=== PATIENT | female | born 1935 | race Caucasian/White ===

== ENCOUNTER 2021-06-14 14:16 | Inpatient (IN) | payer MEDICARE, BC ==
[~2021-06-14] VITALS: Ht 167.6 cm; Wt 62.7 kg
[2021-06-14 15:09] LABS: Source, Urine Clean Catch
[2021-06-14 15:11] LABS: Bilirubin, Urine Neg (Neg); Blood, Urine Neg (Neg); Glucose Qualitative, Urine Neg (Neg); Ketones, Urine Neg (Neg); Leukocyte Esterase, Urine Neg (Neg); Nitrite, Urine Neg (Neg); Protein, Urine Neg (Neg); Specific Gravity, Urine 1.015 (1.003-1.022); Urobilinogen, Urine NORM (Normal)
[2021-06-14 15:12] LABS: BASOPHILS PERCENT AUTO 0 % (0-2); EOSINOPHILS ABSOLUTE AUTO 0.14 K/mm3 (0.00-0.68); EOSINOPHILS PERCENT AUTO 2 % (0-6); Hematocrit 34.3 % (33.0-51.0); Hemoglobin 10.4 g/dL (11.5-16.0); IMMATURE GRAN ABSOLUTE AUTO 0.03 K/mm3 (0.00-0.10); IMMATURE GRAN PERCENT AUTO 0 % (0-1); LYMPHOCYTES ABSOLUTE AUTO 1.09 K/mm3 (0.84-5.20); LYMPHOCYTES PERCENT AUTO 16 % (21-46); MONOCYTES ABSOLUTE AUTO 0.81 K/mm3 (0.16-1.47); MONOCYTES PERCENT AUTO 12 % (4-13); Mean Corpuscular HGB Conc 30.3 g/dL (31.5-36.5); Mean Corpuscular Volume 86 fL (80-100); Mean Platelet Volume 9.2 fL (9.1-12.4); NEUTROPHILS ABSOLUTE AUTO 4.78 K/mm3 (1.96-9.15); NEUTROPHILS PERCENT AUTO 70 % (41-73); Platelet Count 363 K/mm3 (150-400); RDW Coefficient Variation 14.8 % (11.7-14.2); RDW Standard Deviation 46.6 fL (35.1-46.3); White Blood Cell Count 6.85 K/mm3 (4.00-11.30)
[2021-06-14 15:17] LABS: Appearance, Urine Clear (Clear); Color, Urine Pale Yellow (P-Yellow)
[2021-06-14 15:32] LABS: Alanine Aminotransfer (ALT/SGP 16 U/L (12-78); Albumin/Globulin Ratio 0.7 (0.8-1.8); Alk Phos 101 U/L (50-136); Anion Gap 8 mmol/L (6-16); Aspartate Aminotrans (AST/SGOT 16 U/L (12-37); Bilirubin, Total 0.4 mg/dL (0.1-1.0); Blood Urea Nitrogen 17 mg/dL (8-24); Bun/Creatinine Ratio 20.7 (12.0-20.0); CO2, Blood 28 mmol/L (21-32); Calcium, Blood 8.9 mg/dL (8.5-10.1); Chloride, Blood 103 mmol/L (98-108); Creatinine, Blood 0.82 mg/dL (0.40-1.00); Globulin, Blood 4.1 g/dL (2.2-4.0); Glomerular Filtration Rate >60 (60-); Glucose, Blood 123 mg/dL (70-99); Potassium, Blood 4.3 mmol/L (3.5-5.5); Sodium, Blood 139 mmol/L (136-145); Total Protein, Blood 7.1 g/dL (6.4-8.2)
[2021-06-14] MEDS ORDERED: ELIQUIS5 M2 PO (16:06)
[2021-06-14] MEDS ORDERED: AMLO5 PO (16:06)
[2021-06-14] MEDS ORDERED: LOSA25 PO (16:06)
[2021-06-14] MEDS ORDERED: FURO80 PO (16:07)
[2021-06-14] MEDS ORDERED: POTA10T PO (16:07)
[2021-06-14] MEDS ORDERED: ALLO100 PO (20:28)
[2021-06-14] MEDS ORDERED: ALBU2.5V5 (20:28)
[2021-06-14] MEDS ORDERED: ATOR40TA PO (20:29)
[2021-06-14] MEDS ORDERED: DIGOX125 MC1 PO (20:30)
[2021-06-14] MEDS ORDERED: MELA3 PO (20:31)
[2021-06-14] MEDS ORDERED: OXYC5 PO (20:32)
[2021-06-14] MEDS ORDERED: OMEP20ER PO (20:32)
[2021-06-14] MEDS ORDERED: SERT25 PO (20:33)
[2021-06-14] MEDS ORDERED: CLOP75 PO (20:33)
[2021-06-14 20:56] LABS: BODY FLUID RBC 0.801 M/mm3 (0-0); RBC Count, Synovial Fluid 801000 /mm3 (0-0); WBC Count, Synovial Fluid 3321 /mm3 (0-180)
[2021-06-14 21:00] LABS: Color, Synovial Fluid Red (None-P Yel)
[2021-06-14 21:01] LABS: Appearance, Synovial Fluid Bloody (Clear)
[2021-06-14 21:16] LABS: Influenza A, PCR NEGATIVE (NEGATIVE); Influenza B, PCR NEGATIVE (NEGATIVE); Resp Syncytial Virus, PCR NEGATIVE (NEGATIVE); SARS-Cov-2 (COVID-19) PCR, MMC NEGATIVE (NEGATIVE)
[2021-06-14 21:22] LABS: Lymphs, Synovial Fluid 7 % (0-15); Monocytes/Macrophages, Synovia 15 % (0-65); Neutrophils, Synovial Fluid 78 % (0-24)
--- NOTE | 2021-06-15 02:42 | NUR ---
ADMITTED THIS PT. FROM ED, AOX4. AMBULATES TO BR USING A CANE BASELINE AT HOME LIVING INDEPENDENTLY PER PT. 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 NO DRAINAGE NOTED. SMALL FREQUENT VOIDING OF CLEAR TANJA URINE, USES BSC AT TIMES. NO ACUTE CHANGES NOTED. NPO STARTED AT MIDNIGHT. ON TELE, AFIB AT 48 - 60S, ASYMPTOMATIC, DENIES CP, PT. STATED SHE HAS AFIB FOR 3 YRS NOW & SHE SAID SHE DOES NOT FEEL ANY CHEST DISCOMFORT. WILL REPORT TO MADELAINE RN FOR ROUNDING MD TO BE NOTIFIED. WILL CONTINUE TO MONITOR.
[2021-06-15 05:08] LABS: BASOPHILS PERCENT AUTO 0 % (0-2); EOSINOPHILS ABSOLUTE AUTO 0.16 K/mm3 (0.00-0.68); EOSINOPHILS PERCENT AUTO 3 % (0-6); Hematocrit 30.5 % (33.0-51.0); Hemoglobin 9.1 g/dL (11.5-16.0); IMMATURE GRAN ABSOLUTE AUTO 0.02 K/mm3 (0.00-0.10); IMMATURE GRAN PERCENT AUTO 0 % (0-1); LYMPHOCYTES ABSOLUTE AUTO 1.25 K/mm3 (0.84-5.20); LYMPHOCYTES PERCENT AUTO 24 % (21-46); MONOCYTES PERCENT AUTO 12 % (4-13); Mean Corpuscular HGB 25.8 pg (26.0-34.0); Mean Corpuscular HGB Conc 29.8 g/dL (31.5-36.5); Mean Corpuscular Volume 86 fL (80-100); NEUTROPHILS ABSOLUTE AUTO 3.16 K/mm3 (1.96-9.15); NEUTROPHILS PERCENT AUTO 61 % (41-73); Platelet Count 302 K/mm3 (150-400); RDW Coefficient Variation 14.8 % (11.7-14.2); Red Blood Cell Count 3.53 M/mm3 (3.80-5.20); White Blood Cell Count 5.19 K/mm3 (4.00-11.30)
[2021-06-15 06:11] LABS: Alanine Aminotransfer (ALT/SGP 11 U/L (12-78); Albumin, Blood 2.7 g/dL (3.4-5.0); Albumin/Globulin Ratio 0.8 (0.8-1.8); Alk Phos 82 U/L (50-136); Anion Gap 8 mmol/L (6-16); Aspartate Aminotrans (AST/SGOT 14 U/L (12-37); Bilirubin, Total 0.3 mg/dL (0.1-1.0); Blood Urea Nitrogen 15 mg/dL (8-24); Bun/Creatinine Ratio 22.3 (12.0-20.0); CO2, Blood 26 mmol/L (21-32); Calcium, Blood 8.6 mg/dL (8.5-10.1); Chloride, Blood 106 mmol/L (98-108); Creatinine, Blood 0.67 mg/dL (0.40-1.00); Globulin, Blood 3.6 g/dL (2.2-4.0); Glomerular Filtration Rate >60 (60-); Glucose, Blood 97 mg/dL (70-99); Potassium, Blood 3.8 mmol/L (3.5-5.5); Sodium, Blood 140 mmol/L (136-145); Total Protein, Blood 6.3 g/dL (6.4-8.2)
--- NOTE | 2021-06-15 17:29 | NUR ---
SHIFT SUMMARY PT HAS DONE VERY WELL TODAY. HAS DECLINED PAIN MEDS, EATING, DRINKING, VOIDING WELL. MOVING AROUND EASILY. NO DRAINAGE FROM L HIP SITE; SWELLING/REDNESS UNCHANGED.
--- NOTE | 2021-06-16 04:27 | NUR ---
TAIL BOARD MAN SUMMARY NO ACUTE CHANGES THIS SHIFT. PT AAOX4 AND PLEASANT. INDEPENDENT TO BSC. CONTINUES IV ABX. MEDICATED FOR PAIN X1 AT BEDTIME, PT HAS SLEPT WELL THROUGH THE NIGHT. SOME SWELLING REDNESS STILL NOTED TO L HIP, LOOKS IMPROVED PER PT. VSS, WILL CONTINUE TO MONITOR.
[2021-06-16 08:27] LABS: Hematocrit 31.8 % (33.0-51.0); Hemoglobin 9.4 g/dL (11.5-16.0)
--- NOTE | 2021-06-16 14:59 | NUR ---
1400 discharge instructions reviewed with patient and her daughter and questions answered.pt reports pain is adequately controlled with po meds. pt reports her only paiin at this time is in bilat knees due to arthritis.pt up in room wih use of cane. ever po food and fluids, voiding clear yellow urine.
--- NOTE | 2021-06-16 15:03 | NUR ---
1425 discharged to home with daughter
== END 2021-06-16 14:37 | disposition home or self-care (01) | DRG 556 ==
LOC: ER 14:16 → SURS 21:50
PROVIDERS: Emergency Medicine; Family Medicine; Internal Medicine; Physician Assistant; ADMIT Internal Medicine
PROC: 0S9B3ZX Drainage of Left Hip Joint, Percutaneous Approach, Diagnostic (ICD-10-PCS; principal; 2021-06-14)
DX: M79.81 Nontraumatic hematoma of soft tissue (principal); I48.20 Chronic atrial fibrillation, unspecified; D62 Acute posthemorrhagic anemia; Z20.822 Contact with and (suspected) exposure to COVID-19; I11.0 Hypertensive heart disease with heart failure; I50.9 Heart failure, unspecified; K21.9 Gastro-esophageal reflux disease without esophagitis; F32.A Depression, unspecified; J44.9 Chronic obstructive pulmonary disease, unspecified; Z28.21 Immunization not carried out because of patient refusal; M10.9 Gout, unspecified; I25.10 Atherosclerotic heart disease of native coronary artery without angina pectoris; Z96.653 Presence of artificial knee joint, bilateral; Z96.642 Presence of left artificial hip joint; Z79.01 Long term (current) use of anticoagulants; Z88.2 Allergy status to sulfonamides; Z88.1 Allergy status to other antibiotic agents; Z79.02 Long term (current) use of antithrombotics/antiplatelets; Z79.899 Other long term (current) drug therapy; Z95.5 Presence of coronary angioplasty implant and graft; Z90.710 Acquired absence of both cervix and uterus; Z98.890 Other specified postprocedural states
CPT/HCPCS: 0241U; 10160; 36415; 73502; 73701; 80053; 81003; 83605; 83690; 85014; 85018; 85025; 85651; 86140; 87040; 87070; 87205; 89051; 96374; 99285-25; A9270; J0696; J7030; Q9967

== ENCOUNTER 2021-06-22 14:26 | Inpatient (IN) | payer MEDICARE, BC ==
[~2021-06-22] VITALS: Ht 167.6 cm; Wt 62.5 kg
[~2021-06-22 14:26] MED LIST: ALBU2.5V5; ALLO100 PO; AMLO5 PO; ATOR40TA PO; CLOP75 PO; DIGOX125 MC1 PO; ELIQUIS5 M2 PO; FURO80 PO; LOSA25 PO; MELA3 PO; OMEP20ER PO; OXYC5 PO; POTA10T PO; SERT25 PO
[2021-06-22 16:56] LABS: BASOPHILS PERCENT AUTO 0 % (0-2); EOSINOPHILS ABSOLUTE AUTO 0.07 K/mm3 (0.00-0.68); EOSINOPHILS PERCENT AUTO 1 % (0-6); Hematocrit 32.1 % (33.0-51.0); Hemoglobin 9.7 g/dL (11.5-16.0); IMMATURE GRAN ABSOLUTE AUTO 0.04 K/mm3 (0.00-0.10); IMMATURE GRAN PERCENT AUTO 1 % (0-1); LYMPHOCYTES ABSOLUTE AUTO 1.14 K/mm3 (0.84-5.20); LYMPHOCYTES PERCENT AUTO 13 % (21-46); MONOCYTES ABSOLUTE AUTO 0.81 K/mm3 (0.16-1.47); MONOCYTES PERCENT AUTO 9 % (4-13); Mean Corpuscular HGB 25.5 pg (26.0-34.0); Mean Corpuscular HGB Conc 30.2 g/dL (31.5-36.5); Mean Corpuscular Volume 84 fL (80-100); Mean Platelet Volume 9.4 fL (9.1-12.4); NEUTROPHILS ABSOLUTE AUTO 6.61 K/mm3 (1.96-9.15); NEUTROPHILS PERCENT AUTO 76 % (41-73); Platelet Count 331 K/mm3 (150-400); RDW Coefficient Variation 14.6 % (11.7-14.2); Red Blood Cell Count 3.81 M/mm3 (3.80-5.20); White Blood Cell Count 8.67 K/mm3 (4.00-11.30)
[2021-06-22 17:11] LABS: Alanine Aminotransfer (ALT/SGP 18 U/L (12-78); Albumin, Blood 3.1 g/dL (3.4-5.0); Albumin/Globulin Ratio 0.8 (0.8-1.8); Alk Phos 83 U/L (50-136); Anion Gap 4 mmol/L (6-16); Aspartate Aminotrans (AST/SGOT 23 U/L (12-37); Bilirubin, Total 0.6 mg/dL (0.1-1.0); Blood Urea Nitrogen 14 mg/dL (8-24); Bun/Creatinine Ratio 21.1 (12.0-20.0); CO2, Blood 27 mmol/L (21-32); Calcium, Blood 8.7 mg/dL (8.5-10.1); Chloride, Blood 104 mmol/L (98-108); Creatinine, Blood 0.66 mg/dL (0.40-1.00); Globulin, Blood 3.7 g/dL (2.2-4.0); Glomerular Filtration Rate >60 (60-); Glucose, Blood 132 mg/dL (70-99); Potassium, Blood 3.9 mmol/L (3.5-5.5); Sodium, Blood 135 mmol/L (136-145); Total Protein, Blood 6.8 g/dL (6.4-8.2)
[2021-06-23 03:19] LABS: Influenza A, PCR NEGATIVE (NEGATIVE); Influenza B, PCR NEGATIVE (NEGATIVE); Resp Syncytial Virus, PCR NEGATIVE (NEGATIVE); SARS-Cov-2 (COVID-19) PCR, MMC NEGATIVE (NEGATIVE)
[2021-06-23 04:00] LABS: Hematocrit 27.8 % (33.0-51.0); Hemoglobin 8.4 g/dL (11.5-16.0); Mean Corpuscular HGB 25.7 pg (26.0-34.0); Mean Corpuscular HGB Conc 30.2 g/dL (31.5-36.5); Mean Corpuscular Volume 85 fL (80-100); Mean Platelet Volume 8.9 fL (9.1-12.4); Platelet Count 262 K/mm3 (150-400); RDW Coefficient Variation 14.6 % (11.7-14.2); RDW Standard Deviation 45.6 fL (35.1-46.3); Red Blood Cell Count 3.27 M/mm3 (3.80-5.20); White Blood Cell Count 8.18 K/mm3 (4.00-11.30)
[2021-06-23 04:24] LABS: Anion Gap 6 mmol/L (6-16); Blood Urea Nitrogen 17 mg/dL (8-24); Bun/Creatinine Ratio 20.8 (12.0-20.0); CO2, Blood 27 mmol/L (21-32); Calcium, Blood 8.4 mg/dL (8.5-10.1); Chloride, Blood 105 mmol/L (98-108); Creatinine, Blood 0.82 mg/dL (0.40-1.00); Glomerular Filtration Rate >60 (60-); Glucose, Blood 153 mg/dL (70-99); Sodium, Blood 138 mmol/L (136-145)
--- NOTE | 2021-06-23 06:07 | NUR ---
[employer] SALES REPRESENTATIVE SUMMARY NEW ADMIT AT START OF SHIFT. PT ADMITTED FOR DISLOCATED L HIP, HAD ORIGINAL HIP SURGERY THIS APRIL. NOTABLE SWELLING TO LEFT HIP WITH SMALL BRUISE FROM FALL. PT HAS BEEN MEDICATED WITH OXYCODONE AND 25 MCG OF IV FENTANYL THROUGHOUT NIGHT WITH SOME RELIEF. PT HAS BEEN MOVING AROUND ALOT IN BED WHICH MAY BE IRRITATING THE HIP MORE. PT HAD TO HAVE 2L O2 PLACED AT ONE POINT BUT SEEMED TO BE MORE POSITIONAL VS RELATED TO PAIN MEDS SATS INCREASED WHEN PT WAS MORE UPRIGHT IN BED. NOW ON RA. AFIB IN THE 80-90'S ON TELEMETRY. SPOKE TO DR LANDA WITH UPDATE ON PT. PER DR LANDA, DR LEBLANC WILL BE IN TO SEE PT LATER TODAY. WILL CONTINUE TO MONITOR.
--- NOTE | 2021-06-23 09:32 | NUR ---
FAXED REQUEST FOR OP REPORT TO JULIUS JONES FAX NUMBER: [phone]
--- NOTE | 2021-06-23 11:49 | NUR ---
FOLLOWED UP W/KAREN REGARDING REQUEST FOR OPERATIVE REPORT VERIFIED THEY HAVE REC'D REQUEST. PROCESS IN ORDER OF REQUEST RECEIPT, MULTIPLE REQUESTS AHEAD OF THIS ONE. ANTICIPATE SHOULD BE PROCESSED AT SOME POINT TODAY.
--- NOTE | 2021-06-23 12:15 | NUR ---
DRESSING CHANGED ON IV L FA 20 G. FLUSHED WITH 10NS, PATENT, NON TENDER.
--- NOTE | 2021-06-23 13:24 | NUR ---
06/23/21 1324 Geovanna Montenegro PATIENT ARRIVED TO OR WITH VALENCIA CATHETER IN PLACE DRAINING YELLOW URINE.
--- NOTE | 2021-06-23 19:16 | NUR ---
SHIFT SUMMARY PT S/P L HIP REVISION. PT HAD A LONG SURGERY AND IS CURRENTLY CONFUSED. DAUGHTER WENT HOME FROM THE NIGHT. SIGNATURE NEEDED FROM PATIENT IN ORDER TO RELEASE PT CHART INFORMATION FROM JULIUS JONES.
--- NOTE | 2021-06-23 20:04 | NUR ---
PT IS VERY CONFUSED AND PARANOID AFTER COMING BACK FROM SURGERY. PT REMOVED TELE MONITORING AND WILL NOT ALLOW STAFF TO REPLACE TELE. PT ALSO REMOVED SPO2 MONITORING AND WILL NOT LET IT BE REPLACED. PT STATES "YOU GUYS ARE TRYING TO TRACK MY INFORMATION WITH THESE THINGS". NOTIFIED [employer] THAT PT REFUSING TELE AT THIS TIME.
--- NOTE | 2021-06-23 21:18 | NUR ---
TRIED CHECKING V/S FOR POST OP AT 2014 & 2114, PT. CONFUSED, PULLED HER ARM AWAY FOR B/P CUFF & SAID ' NO", PRIMARY RN NOTIFIED.
--- NOTE | 2021-06-23 21:24 | NUR ---
PT MENTATION A BIT IMPROVED AT THIS POINT. IS MORE CALM AND ALLOWED THIS RN TO REPLACE TELE MONITORING AND SPO2 MONITOR. PT SITTING IN BED AT THIS TIME EATING JELLO, STATES PAIN LEVEL IS A 0. WILL CONTINUE TO MONITOR.
--- NOTE | 2021-06-23 21:57 | NUR ---
PT BACK TO BEING PARANOID AND CONFUSED. ATTEMPTED TO START PT'S SCHEDULED IV ABX AND PT REFUSING AND YELLING AT STAFF. CONTINUES TO REFUSE TO HAVE VITAL SIGNS TAKEN AT THIS TIME. WILL CONTINUE TO PERFORM CARE PT ALLOWS.
--- NOTE | 2021-06-23 23:27 | NUR ---
CATHETER CARE DONE WITH READYCLEANSE WIPES, PT. TOLERATED WELL.
--- NOTE | 2021-06-23 23:31 | NUR ---
OFFERED TO REPOSITION & BOOST PT. UP IN BED, PT STRONGLY REFUSED, STATING THAT SHE IS FINE WITH HER POSITION.
[2021-06-24 03:53] LABS: BASOPHILS ABSOLUTE AUTO 0.01 K/mm3 (0.00-0.23); BASOPHILS PERCENT AUTO 0 % (0-2); EOSINOPHILS PERCENT AUTO 0 % (0-6); Hematocrit 20.3 % (33.0-51.0); IMMATURE GRAN PERCENT AUTO 1 % (0-1); LYMPHOCYTES ABSOLUTE AUTO 0.78 K/mm3 (0.84-5.20); LYMPHOCYTES PERCENT AUTO 5 % (21-46); MONOCYTES ABSOLUTE AUTO 1.69 K/mm3 (0.16-1.47); MONOCYTES PERCENT AUTO 11 % (4-13); Mean Corpuscular HGB 25.5 pg (26.0-34.0); Mean Corpuscular HGB Conc 29.6 g/dL (31.5-36.5); Mean Corpuscular Volume 86 fL (80-100); Mean Platelet Volume 9.6 fL (9.1-12.4); NEUTROPHILS ABSOLUTE AUTO 12.43 K/mm3 (1.96-9.15); NEUTROPHILS PERCENT AUTO 83 % (41-73); Platelet Count 290 K/mm3 (150-400); RDW Coefficient Variation 14.7 % (11.7-14.2); RDW Standard Deviation 46.2 fL (35.1-46.3); Red Blood Cell Count 2.35 M/mm3 (3.80-5.20); White Blood Cell Count 15.01 K/mm3 (4.00-11.30)
[2021-06-24 04:17] LABS: Anion Gap 9 mmol/L (6-16); Blood Urea Nitrogen 24 mg/dL (8-24); Bun/Creatinine Ratio 28.3 (12.0-20.0); CO2, Blood 22 mmol/L (21-32); Calcium, Blood 7.6 mg/dL (8.5-10.1); Chloride, Blood 104 mmol/L (98-108); Creatinine, Blood 0.85 mg/dL (0.40-1.00); Glomerular Filtration Rate >60 (60-); Glucose, Blood 168 mg/dL (70-99); Potassium, Blood 4.2 mmol/L (3.5-5.5); Sodium, Blood 135 mmol/L (136-145)
--- NOTE | 2021-06-24 04:57 | NUR ---
FINANCIAL ADMINISTRATIVE ASSISTANT SUMMARY PT CAME BACK FROM SURGERY NOT LONG BEFORE START OF SHIFT. PT HAS BEEN QUITE CONFUSED AND PARANOID SINCE COMING TO THE FLOOR, SHE WAS AAOX4 PREVIOUS NIGHT. PT OFTEN AGITATED WITH STAFF AND REFUSING CARE AT TIMES BUT DOES HAVE SHORT PERIODS WHERE SHE WILL BE CALM AND COOPERATIVE. AT ONE POINT PT BEGAN REMOVING TELEMETRY, SPO2 MONITOR, AND PULLED HER IV. SPOKE TO DR GARCIA WHO GAVE ORDER TO DC TELEMETRY AND PLACE PT IN RAISSA VEST AND SOFT WRIST RESTRAINTS. NEW IV PLACED, ABX INFUSED. L HIP SURGICAL SITE WITH CLEAR PRINEO DRESSING, C/D/I. PT HAS DENIED PAIN AND REFUSING PAIN MEDICATIONS THUS FAR. VSS, WILL CONTINUE TO MONITOR.
--- NOTE | 2021-06-24 17:56 | NUR ---
SHIFT SUMMARY PT POD #1 FOR L HIP REVISION. PT CONFUSED AND IN WRIST AND VEST RESTRAINT THIS AM. PT'S MENTATION HAS CLEARED QUITE A BIT AND SHE WAS ABLE TO WORK WITH PT/OT. WRIST RESTRAINTS DC'D BUT VEST REMAINS DUE TO THE PT STILL HAVING MOMENTS OF CONFUSION. WILL CONTINUE TO ASSESS THE PT'S MENTATION. PAIN CONTROLLED PER EMR. WILL REPORT TO JOSE RN.
[2021-06-25 04:28] LABS: BASOPHILS ABSOLUTE AUTO 0.01 K/mm3 (0.00-0.23); BASOPHILS PERCENT AUTO 0 % (0-2); EOSINOPHILS ABSOLUTE AUTO 0.12 K/mm3 (0.00-0.68); EOSINOPHILS PERCENT AUTO 1 % (0-6); IMMATURE GRAN ABSOLUTE AUTO 0.09 K/mm3 (0.00-0.10); IMMATURE GRAN PERCENT AUTO 1 % (0-1); LYMPHOCYTES ABSOLUTE AUTO 1.24 K/mm3 (0.84-5.20); LYMPHOCYTES PERCENT AUTO 9 % (21-46); MONOCYTES ABSOLUTE AUTO 1.61 K/mm3 (0.16-1.47); MONOCYTES PERCENT AUTO 12 % (4-13); Mean Corpuscular HGB 25.2 pg (26.0-34.0); Mean Corpuscular HGB Conc 31.1 g/dL (31.5-36.5); Mean Platelet Volume 9.3 fL (9.1-12.4); NEUTROPHILS ABSOLUTE AUTO 10.41 K/mm3 (1.96-9.15); NEUTROPHILS PERCENT AUTO 77 % (41-73); Platelet Count 279 K/mm3 (150-400); RDW Coefficient Variation 14.6 % (11.7-14.2); RDW Standard Deviation 43.8 fL (35.1-46.3); Red Blood Cell Count 2.02 M/mm3 (3.80-5.20); White Blood Cell Count 13.48 K/mm3 (4.00-11.30)
[2021-06-25 04:32] LABS: Mean Corpuscular Volume 81 fL (80-100)
[2021-06-25 04:33] LABS: Hematocrit 16.4 % (33.0-51.0); Hemoglobin 5.1 g/dL (11.5-16.0)
--- NOTE | 2021-06-25 05:20 | NUR ---
CRITICAL VALUE NOTIFIED DR. VERMA ABOUT CRITICAL HGB 5.1, HCT 16.4. NOTIFIED DR THAT PT DECLINES BLOOD PRODUCTS, DUE TO [employer] PREFERENCES. DR. BRAMBILA WITH NO ORDERS AT THIS TIME.
--- NOTE | 2021-06-25 07:43 | NUR ---
AIDA SLEPT MOST OF THE SHIFT. SHE REMAINED SAFE FROM FALLS, WITH A SOFT RAISSA VEST RESTRAINT ON TO PREVENT FALLS RELATED TO CONFUSION, AND WEAKNESS/IMPAIRED GAIT. PT WITH CRITICAL HGB, WILL NOT BE TREATED WITH BLOOD PRODUCTS DUE TO PATIENT PREFERENCE. INCISION TO LEFT HIP IS C/D/I WITH NO DRAINAGE NOTED. VALENCIA IN PLACE, DRAINING YELLOW URINE.
--- NOTE | 2021-06-25 16:56 | NUR ---
SHIFT SUMMARY PT IS POD#2 FOR A L BUZZ WITH WITH DR. LEBLANC. PAIN HAS BEEN MANAGED WITH OXYCODONE THIS SHIFT. PT IS A 2 PERSON MODERATE ASSIST FOR TRANSFERS. PT IS PAINFUL/FEARFUL WITH MOVEMENT. PT HAS BEEN ON 2L O2 VIA NC. PT HAS BEEN DROWSY TODAY BUT AWAKENS WHEN SPOKEN TO. WILL MONITOR UNTIL REPORT TO JOSE MARCH.
--- NOTE | 2021-06-25 17:37 | NUR ---
PT HAS LOW URINE OUTPUT OF 350ML. DR. CORDOVA NOTIFIED. WILL START GENTLE HYDRATION PER DR. CORDOVA.
--- NOTE | 2021-06-26 04:31 | NUR ---
SHIFT SUMMARY PT STILL COMPLAINS OF LEFT HIP PAIN ESPECIALLY WITH MOVEMENT. OYXCODONE WORKS WELL FOR THE PAIN. INCISION IS CLEAR AND DRY, DERMABOND IN PLACE. VALENCIA CATHETHER IN PLACE WITH 350 MLS OUT THIS SHIFT, SIMILAR TO MADELAINE'S RECORDED OUTPUT. PT IS CURRENTLY RECEIVING NS AT 50ML/HR ORDERED. PT ATTEMPTED TO HAVE A BM THIS SHIFT WITHOUT SUCCESS. VITALS HAVE REMAINED STABLE. NO ACUTE CHANGES OVERNIGHT. BED IN LOWEST POSITION, CALL LIGHT WITHIN REACH.
[2021-06-26 05:16] LABS: BASOPHILS ABSOLUTE AUTO 0.01 K/mm3 (0.00-0.23); BASOPHILS PERCENT AUTO 0 % (0-2); EOSINOPHILS PERCENT AUTO 3 % (0-6); IMMATURE GRAN PERCENT AUTO 2 % (0-1); LYMPHOCYTES ABSOLUTE AUTO 1.08 K/mm3 (0.84-5.20); LYMPHOCYTES PERCENT AUTO 10 % (21-46); MONOCYTES ABSOLUTE AUTO 1.29 K/mm3 (0.16-1.47); MONOCYTES PERCENT AUTO 12 % (4-13); Mean Corpuscular HGB 25.7 pg (26.0-34.0); Mean Corpuscular HGB Conc 30.6 g/dL (31.5-36.5); Mean Corpuscular Volume 84 fL (80-100); Mean Platelet Volume 9.3 fL (9.1-12.4); NEUTROPHILS ABSOLUTE AUTO 7.85 K/mm3 (1.96-9.15); NEUTROPHILS PERCENT AUTO 73 % (41-73); NRBC ABSOLUTE 0.06 K/mm3 (0.00-0.02); NRBC Auto 0.6 /100 WBC (0.0-0.2); Platelet Count 359 K/mm3 (150-400); RDW Coefficient Variation 14.9 % (11.7-14.2); RDW Standard Deviation 45.6 fL (35.1-46.3); Red Blood Cell Count 2.14 M/mm3 (3.80-5.20); White Blood Cell Count 10.73 K/mm3 (4.00-11.30)
[2021-06-26 05:23] LABS: Hemoglobin 5.5 g/dL (11.5-16.0)
--- NOTE | 2021-06-26 18:24 | NUR ---
SHIFT SUMMARY PT A&O3, VSS/2L NC BASELINE, VERNON PO, VALENCIA PATENT & DRAINING YELLOW URINE, PAIN MANAGED WITH TYLENOL AND 5 MG OXY(X1), TELE AFIB @ 84 BPM, NS KVO AND MEDS PER EMAR. POD3 L BUZZ HIP, DERMABOND, CDI. STAND PIVOT TO CHAIR WITH FWW/GB, UP TO CHAIR T/O SHIFT. PALLIATIVE CARE IN TO SEE PT. WILL REPORT TO ONCOMING NOC RN.
--- NOTE | 2021-06-26 18:53 | NUR ---
pt up in recliner strrting to express more discomfort. She felt she worked wekk with PT today. having some neck and back pain as well as hip pain. Pt pale and mildly laobored in breathing. Might be a good plan to have tiago see her for her anemia and follow out pt until she returns to [place]. She is here with daughter because her caregivers are having surgery. she has an advance directive. The [facility] lost it. She is trying to get a copy. advised will help her with a new one if necessary. Pt wants full treatment. If she can not recover or tretmen chaoices do not remain within the proctices of [place] the children have been instrcted to place her on comfort or hospice.
--- NOTE | 2021-06-27 05:14 | NUR ---
SHIFT SUMMARY A/O X2/3 -CONFUSED AT TIMES, EASY TO REORIENT. POD3 BUZZ HIP FIXATION, DERMABOND INTACT. NO ACUTE CHANGES OVER NIGHT. VALENCIA IN PLACE, DRAINING TO GRAVITY. VITAL SIGNS STABLE. TOLERATING PO INTAKE. MIDLINE PLACED IN R UPPER ARM PER FIRE FIGHTER AIRPORT. PAIN MANAGED WITH PO PAIN MEDICATION. NO N/V. STAND PIVOT WITH 2 ASSIST, GB, AND WALKER. WILL CONTINUE TO MONITOR AND REPORT TO ONCOMING RN.
--- NOTE | 2021-06-27 18:20 | NUR ---
SHIFT SUMMARY ERIK WAS DC'd TODAY & VOIDING WITHOUT ISSUES. UP TO CHAIR FOR MOST OF MORNING & UP TO BSC FOR ALL VOIDS & BM. PAIN IS REASONABLY MANAGED. EATING & DRINKING WELL. DENIES DIZZINESS OR LIGHTHEADEDNESS DESPITE LOW H&H.
[2021-06-28 04:25] LABS: Hematocrit 22.9 % (33.0-51.0); Hemoglobin 6.6 g/dL (11.5-16.0)
--- NOTE | 2021-06-28 04:33 | NUR ---
SHIFT SUMMARY NO ACUTE CHANGES THIS SHIFT. PT ALERT AND ORIENTED, BUT CAN BE FORGETFUL AND IMPULSIVE AND SLOW TO RESPOND AT TIMES. BED ALARM IN PLACE FOR SAFETY. LEFT HIP DRESSING REMAINS CDI. PO PAIN MEDS PRN. TELE IN PLACE. IV SL. UP WITH 1-2 ASSIST TO BSC. PT HAD BM THIS SHIFT. CALL LIGHT WITHIN REACH.
--- NOTE | 2021-06-28 17:54 | NUR ---
SHIFT SUMMARY PT HAS DONE VERY WELL TODAY. UP TO CHAIR & BSC MUCH EASIER THAN YESTERDAY. STILL A 1-2 PERSON ASSIST w/ FWW & GB. PAIN WELL CONTROLLED.
--- NOTE | 2021-06-29 04:12 | NUR ---
SHIFT SUMMARY PT ALERT AND MORE ORIENTED TONIGHT VS THE PREVIOUS NIGHT. BED ALARM IN PLACE FOR OCCASSIONAL FORGETFULLNESS, BUT REORIENTS EASILY. LEFT HIP DRESSING REMAINS CDI. 1 ROXICODONE FOR PAIN PRN. UP WITH 1-2 ASSIST TO BSC. CALL LIGHT WITHIN REACH.
[2021-06-29 09:10] LABS: Hemoglobin 6.4 g/dL (11.5-16.0)
--- NOTE | 2021-06-29 17:19 | NUR ---
SHIFT SUMMARY PT HAS DONE WELL TODAY. WORKED w/ OT THIS AM & PT THIS AFTERNOON. HAS INCREASED ACTIVITY & IS AMBULATING TO BATHROOM TO VOID INSTEAD OF BSC WHEN PAIN IS CONTROLLED & EVEN IN HALLWAY w/ THERAPY. PT IS HAPPY w/ PROGRESS & THANKFUL.
--- NOTE | 2021-06-30 03:45 | NUR ---
SUMMARY NO NEW ISSUES NOTED. PT HAS BEEN SLEEPING T/OUT THE SHIFT. PT HAS BEEN AMBULATING TORESTROOM W/ GB AND FWW. PT CURRENTLY SLEEPING IN NO DISTRESS. CALL LIGHT IN REACH.
[2021-06-30 04:48] LABS: Hematocrit 23.5 % (33.0-51.0); Hemoglobin 6.6 g/dL (11.5-16.0)
[2021-06-30 12:17] LABS: Influenza A, PCR NEGATIVE (NEGATIVE); Influenza B, PCR NEGATIVE (NEGATIVE); Resp Syncytial Virus, PCR NEGATIVE (NEGATIVE); SARS-Cov-2 (COVID-19) PCR, MMC NEGATIVE (NEGATIVE)
[2021-06-30 14:56] LABS: Percent Saturation 37.1 % (15.0-50.0)
--- NOTE | 2021-06-30 16:03 | NUR ---
TRANSFER SUMMARY PT A&OX4/FORGETFUL, VSS/RA, POWERGLIDE RUE LEFT IN FOR BILL NEXT WEEK, AMB W/GB & FWW, VERNON PO, PAIN MANAGED WELL WITH 5 MG OXY AND TYLENOL. VOIDING WELL, ATTENDS ON FOR LEAKAGE. REPORT PROVIDED TO SHER AT [facility].
[2021-07-28] MEDS ORDERED: ATORVASTATIN CA80 M1 PO (16:58)
[2021-07-28] MEDS ORDERED: BISA5EC PO (16:59)
[2021-07-28] MEDS ORDERED: BUME2 PO (17:00)
[2021-07-28] MEDS ORDERED: Digoxin PO (17:01)
[2021-07-28] MEDS ORDERED: Colace100 MG PO (17:03)
[2021-07-28] MEDS ORDERED: FEROSUL325 M1 PO (17:04)
[2021-07-28] MEDS ORDERED: LOSA50 PO (17:05)
[2021-07-28] MEDS ORDERED: METOLAZONE PO (17:06)
[2021-07-28] MEDS ORDERED: ELIQUIS5 M2 PO (19:50)
[2021-08-05] MEDS ORDERED: SPIRONOLACTONE PO (02:12)
[2021-08-05] MEDS ORDERED: CLOP75 PO (02:14)
[2021-08-05] MEDS ORDERED: MULTI-VITAMIN1 EAC2 PO (02:18)
[2021-08-05] MEDS ORDERED: ALBUTEROL SULFATE INH (02:24)
[2021-08-05] MEDS ORDERED: Fleet Enema132 ML PR (02:25)
[2021-08-05] MEDS ORDERED: BISA10S PR (02:25)
[2021-08-05] MEDS ORDERED: DULCOLAX400 MG/5 M PO (02:26)
[2021-08-05] MEDS ORDERED: MIRALAX17 GM PO (02:26)
[2021-08-05] MEDS ORDERED: TRAZ50 PO (02:27)
[2021-08-05] MEDS ORDERED: Acetaminophen325 M1 PO (02:28)
[2021-08-12] MEDS ORDERED: QUETIAPINE FUMA50 M2 PO (16:57)
[2021-08-12] MEDS ORDERED: RIFA300 PO (16:58)
[2021-08-12] MEDS ORDERED: Vancomycin500 MG/100 IV (17:01)
[2021-08-12] MEDS ORDERED: Vitamin D1000 UNI1 PO (17:02)
[2021-08-12] MEDS ORDERED: VISBIOME 112.51 EACH PO (17:02)
== END 2021-06-30 15:53 | DRG 467 ==
LOC: ER 14:26 → SURS 14:27 → ER 19:00 → SURS 19:35
PROVIDERS: Emergency Medicine; Internal Medicine; Orthopaedic Surgery; ADMIT Internal Medicine
PROC: 0SPB0JZ Removal of Synthetic Substitute from Left Hip Joint, Open Approach (ICD-10-PCS; 2021-06-23)
PROC: 0SRB0J9 Replacement of Left Hip Joint with Synthetic Substitute, Cemented, Open Approach (ICD-10-PCS; principal; 2021-06-23 12:30)
DX: T84.021A Dislocation of internal left hip prosthesis, initial encounter (principal); D62 Acute posthemorrhagic anemia; I48.20 Chronic atrial fibrillation, unspecified; F32.A Depression, unspecified; I25.10 Atherosclerotic heart disease of native coronary artery without angina pectoris; I50.9 Heart failure, unspecified; Z20.822 Contact with and (suspected) exposure to COVID-19; J44.9 Chronic obstructive pulmonary disease, unspecified; K21.9 Gastro-esophageal reflux disease without esophagitis; I11.0 Hypertensive heart disease with heart failure; Z90.710 Acquired absence of both cervix and uterus; Z98.890 Other specified postprocedural states; Z95.5 Presence of coronary angioplasty implant and graft; Z96.653 Presence of artificial knee joint, bilateral; Z88.2 Allergy status to sulfonamides; Z88.8 Allergy status to other drugs, medicaments and biological substances; Z79.899 Other long term (current) drug therapy; M10.9 Gout, unspecified
CPT/HCPCS: 0241U; 27265; 36415; 51702; 71045; 72170; 73501; 80048; 80053; 82728; 83540; 83550; 85014; 85018; 85025; 85027; 87070; 87075; 87205; 93005; 93010; 94760; 96374; 96375; 97110; 97112; 97116; 97116-CQ; 97162; 97166; 97530; 97535; 99152; 99285-25; A9270; C1713; C1751; C1776; J0171; J0690; J0696; J0735; J1100; J1170; J1885; J2370; J2405; J2704; J2795; J2916; J3010; J3360; J7030; J7050

== ENCOUNTER 2021-07-04 08:40 | Day surgery (SDC) | payer MEDICARE, BC ==
[2021-07-28] MEDS ORDERED: ATORVASTATIN CA80 M1 PO (16:58)
[2021-07-28] MEDS ORDERED: BISA5EC PO (16:59)
[2021-07-28] MEDS ORDERED: BUME2 PO (17:00)
[2021-07-28] MEDS ORDERED: Digoxin PO (17:01)
[2021-07-28] MEDS ORDERED: Colace100 MG PO (17:03)
[2021-07-28] MEDS ORDERED: FEROSUL325 M1 PO (17:04)
[2021-07-28] MEDS ORDERED: LOSA50 PO (17:05)
[2021-07-28] MEDS ORDERED: METOLAZONE PO (17:06)
[2021-07-28] MEDS ORDERED: ELIQUIS5 M2 PO (19:50)
[2021-08-05] MEDS ORDERED: SPIRONOLACTONE PO (02:12)
[2021-08-05] MEDS ORDERED: CLOP75 PO (02:14)
[2021-08-05] MEDS ORDERED: MULTI-VITAMIN1 EAC2 PO (02:18)
[2021-08-05] MEDS ORDERED: ALBUTEROL SULFATE INH (02:24)
[2021-08-05] MEDS ORDERED: Fleet Enema132 ML PR (02:25)
[2021-08-05] MEDS ORDERED: BISA10S PR (02:25)
[2021-08-05] MEDS ORDERED: MIRALAX17 GM PO (02:26)
[2021-08-05] MEDS ORDERED: DULCOLAX400 MG/5 M PO (02:26)
[2021-08-05] MEDS ORDERED: TRAZ50 PO (02:27)
[2021-08-05] MEDS ORDERED: Acetaminophen325 M1 PO (02:28)
[2021-08-12] MEDS ORDERED: QUETIAPINE FUMA50 M2 PO (16:57)
[2021-08-12] MEDS ORDERED: RIFA300 PO (16:58)
[2021-08-12] MEDS ORDERED: Vancomycin500 MG/100 IV (17:01)
[2021-08-12] MEDS ORDERED: Vitamin D1000 UNI1 PO (17:02)
[2021-08-12] MEDS ORDERED: VISBIOME 112.51 EACH PO (17:02)
== END 2021-07-04 11:13 | disposition home or self-care (01) ==
LOC: ATC 08:40
DX: D64.9 Anemia, unspecified (principal)
CPT/HCPCS: 96365; J2916

== ENCOUNTER 2021-07-06 01:00 | Day surgery (SDC) | payer MEDICARE, BC | END 2021-07-06 10:50 | disposition home or self-care (01) | LOC: ATC 01:00 | DX: D50.0 Iron deficiency anemia secondary to blood loss (chronic) (principal); D63.8 Anemia in other chronic diseases classified elsewhere; I25.10 Atherosclerotic heart disease of native coronary artery without angina pectoris; J44.9 Chronic obstructive pulmonary disease, unspecified; I11.0 Hypertensive heart disease with heart failure; I50.9 Heart failure, unspecified; Z88.2 Allergy status to sulfonamides; Z96.653 Presence of artificial knee joint, bilateral; Z96.642 Presence of left artificial hip joint; Z95.5 Presence of coronary angioplasty implant and graft | CPT/HCPCS: J2916 ==

== ENCOUNTER 2021-07-08 01:32 | Day surgery (SDC) | payer MEDICARE, BC | END 2021-07-08 11:12 | disposition home or self-care (01) | LOC: ATC 01:32 | DX: D50.0 Iron deficiency anemia secondary to blood loss (chronic) (principal); D63.8 Anemia in other chronic diseases classified elsewhere; I10 Essential (primary) hypertension | CPT/HCPCS: J2916 ==

== ENCOUNTER 2021-07-11 01:39 | Day surgery (SDC) | payer MEDICARE, BC | END 2021-07-11 10:53 | disposition home or self-care (01) | LOC: ATC 01:39 | DX: D50.0 Iron deficiency anemia secondary to blood loss (chronic) (principal); D63.8 Anemia in other chronic diseases classified elsewhere; I11.0 Hypertensive heart disease with heart failure; I50.9 Heart failure, unspecified; I25.10 Atherosclerotic heart disease of native coronary artery without angina pectoris; Z95.5 Presence of coronary angioplasty implant and graft; J44.9 Chronic obstructive pulmonary disease, unspecified; Z96.653 Presence of artificial knee joint, bilateral; Z96.642 Presence of left artificial hip joint | CPT/HCPCS: J2916 ==

== ENCOUNTER 2021-07-14 00:25 | Day surgery (SDC) | payer MEDICARE, BC | END 2021-07-14 11:32 | disposition home or self-care (01) | LOC: ATC 00:25 | DX: D50.0 Iron deficiency anemia secondary to blood loss (chronic) (principal); D63.8 Anemia in other chronic diseases classified elsewhere; I11.0 Hypertensive heart disease with heart failure; I50.9 Heart failure, unspecified; J45.909 Unspecified asthma, uncomplicated; I25.10 Atherosclerotic heart disease of native coronary artery without angina pectoris; Z88.1 Allergy status to other antibiotic agents; Z88.2 Allergy status to sulfonamides | CPT/HCPCS: 96365; J2916 ==

== ENCOUNTER → 2021-07-26 | Outpatient (CLI) | payer MEDICARE, BC ==
[~2021-07-26] MED LIST changes: +ATORVASTATIN CA80 M1 PO; +BISA5EC PO; +BUME2 PO; +Colace100 MG PO; +Digoxin PO; +FEROSUL325 M1 PO; +LOSARTAN POTAS100 M1 PO; +METO2.5 PO
== END | disposition home or self-care (01) ==
LOC: LAB SHORT 11:13 → PLD 11:13
DX: C44.329 Squamous cell carcinoma of skin of other parts of face (principal); C44.629 Squamous cell carcinoma of skin of left upper limb, including shoulder
CPT/HCPCS: 88305

== ENCOUNTER → 2021-08-23 | Outpatient (CLI) | payer MEDICARE, BC ==
[~2021-08-23] MED LIST changes: +ALBUTEROL SULFATE INH; +Acetaminophen325 M1 PO; +BISA10S PR; +DULCOLAX400 MG/5 M PO; +Fleet Enema132 ML PR; +LOSA50 PO; -LOSARTAN POTAS100 M1 PO; -METO2.5 PO; +METOLAZONE PO; +MIRALAX17 GM PO; +MULTI-VITAMIN1 EAC2 PO; +QUETIAPINE FUMA50 M2 PO; +RIFA300 PO; +SPIRONOLACTONE PO; +TRAZ50 PO; +VISBIOME 112.51 EACH PO; +Vancomycin500 MG/100 IV; +Vitamin D1000 UNI1 PO
== END | disposition home or self-care (01) ==
LOC: PLD 08:13 → LAB SHORT 08:13 → LAB 08:13
DX: L57.0 Actinic keratosis (principal); D04.61 Carcinoma in situ of skin of right upper limb, including shoulder
CPT/HCPCS: 88305

== ENCOUNTER 2021-10-28 05:26 | Emergency (ER) | payer MEDICARE, BC ==
[~2021-10-28] VITALS: Ht 167.6 cm; Wt 59.0 kg
[2021-10-28 06:02] LABS: BASOPHILS ABSOLUTE AUTO 0.01 K/mm3 (0.00-0.23); BASOPHILS PERCENT AUTO 0 % (0-2); EOSINOPHILS ABSOLUTE AUTO 0.08 K/mm3 (0.00-0.68); EOSINOPHILS PERCENT AUTO 1 % (0-6); Hematocrit 32.7 % (33.0-51.0); Hemoglobin 10.5 g/dL (11.5-16.0); IMMATURE GRAN ABSOLUTE AUTO 0.05 K/mm3 (0.00-0.10); IMMATURE GRAN PERCENT AUTO 1 % (0-1); LYMPHOCYTES ABSOLUTE AUTO 1.14 K/mm3 (0.84-5.20); LYMPHOCYTES PERCENT AUTO 16 % (21-46); MONOCYTES ABSOLUTE AUTO 0.57 K/mm3 (0.16-1.47); MONOCYTES PERCENT AUTO 8 % (4-13); Mean Corpuscular HGB 28.1 pg (26.0-34.0); Mean Corpuscular HGB Conc 32.1 g/dL (31.5-36.5); Mean Corpuscular Volume 87 fL (80-100); NEUTROPHILS ABSOLUTE AUTO 5.48 K/mm3 (1.96-9.15); NEUTROPHILS PERCENT AUTO 75 % (41-73); Platelet Count 243 K/mm3 (150-400); RDW Coefficient Variation 16.1 % (11.7-14.2); RDW Standard Deviation 51.8 fL (35.1-46.3); Red Blood Cell Count 3.74 M/mm3 (3.80-5.20); White Blood Cell Count 7.33 K/mm3 (4.00-11.30)
[2021-10-28 06:20] LABS: Albumin, Blood 3.6 g/dL (3.4-5.0); Bilirubin, Total 1.2 mg/dL (0.1-1.0); Bun/Creatinine Ratio 18.1 (12.0-20.0); Calcium, Blood 8.7 mg/dL (8.5-10.1); Creatinine, Blood 0.77 mg/dL (0.40-1.00); Globulin, Blood 3.7 g/dL (2.2-4.0); Potassium, Blood 3.6 mmol/L (3.5-5.5); Total Protein, Blood 7.3 g/dL (6.4-8.2)
[2021-10-28 08:28] LABS: Source, Urine Clean Catch
[2021-10-28 08:34] LABS: Appearance, Urine Clear (Clear); Bilirubin, Urine Neg (Neg); Blood, Urine 1+ (Neg); Color, Urine Yellow (P-Yellow); Glucose Qualitative, Urine Neg (Neg); Ketones, Urine Neg (Neg); Leukocyte Esterase, Urine Neg (Neg); Nitrite, Urine Neg (Neg); Protein, Urine Neg (Neg); Urobilinogen, Urine NORM (Normal)
[2021-10-28 08:58] LABS: Bacteria Not Seen /hpf; Red Blood Cells, Urine 0-2 /hpf (0-2); Squamous Epithelial Cells Not Seen /hpf (Few); White Blood Cells, Urine 0-2 /hpf (0-5)
[2021-10-28] MEDS ORDERED: ALBU2.5V5 INH (09:37)
== END 2021-10-28 10:09 | disposition home or self-care (01) ==
LOC: ER 05:26
PROVIDERS: Emergency Medicine
DX: I11.0 Hypertensive heart disease with heart failure (principal); I50.9 Heart failure, unspecified; J44.9 Chronic obstructive pulmonary disease, unspecified; I25.10 Atherosclerotic heart disease of native coronary artery without angina pectoris; K21.9 Gastro-esophageal reflux disease without esophagitis; Z88.2 Allergy status to sulfonamides; Z88.8 Allergy status to other drugs, medicaments and biological substances; Z79.899 Other long term (current) drug therapy; Z95.5 Presence of coronary angioplasty implant and graft; Z96.653 Presence of artificial knee joint, bilateral; Z96.642 Presence of left artificial hip joint
CPT/HCPCS: 71045; 80053; 81001; 83880; 84484; 85025; 93005; 93010; J1940

== ENCOUNTER → 2022-05-18 | Outpatient (CLI) | payer MEDICARE, BC ==
[~2022-05-18] MED LIST changes: +ALBU2.5V5 INH
[2022-05-18 18:38] LABS: BASOPHILS ABSOLUTE AUTO 0.01 K/mm3 (0.00-0.23); BASOPHILS PERCENT AUTO 0 % (0-2); EOSINOPHILS ABSOLUTE AUTO 0.15 K/mm3 (0.00-0.68); EOSINOPHILS PERCENT AUTO 2 % (0-6); Hematocrit 32.1 % (33.0-51.0); Hemoglobin 10.6 g/dL (11.5-16.0); IMMATURE GRAN ABSOLUTE AUTO 0.02 K/mm3 (0.00-0.10); IMMATURE GRAN PERCENT AUTO 0 % (0-1); LYMPHOCYTES ABSOLUTE AUTO 1.29 K/mm3 (0.84-5.20); LYMPHOCYTES PERCENT AUTO 20 % (21-46); MONOCYTES ABSOLUTE AUTO 0.62 K/mm3 (0.16-1.47); MONOCYTES PERCENT AUTO 10 % (4-13); Mean Corpuscular HGB 28.6 pg (26.0-34.0); Mean Corpuscular Volume 87 fL (80-100); Mean Platelet Volume 9.9 fL (9.1-12.4); NEUTROPHILS ABSOLUTE AUTO 4.34 K/mm3 (1.96-9.15); NEUTROPHILS PERCENT AUTO 68 % (41-73); Platelet Count 195 K/mm3 (150-400); RDW Coefficient Variation 13.9 % (11.7-14.2); RDW Standard Deviation 44.2 fL (35.1-46.3); White Blood Cell Count 6.43 K/mm3 (4.00-11.30)
[2022-05-18 19:43] LABS: Ferritin, Serum 67 ng/mL (8-252); Iron Serum 33 ug/dL (50-170); Percent Saturation 11.5 % (15.0-50.0); Total Iron Binding Capacity 287 ug/dL (250-450)
[2022-05-18 19:58] LABS: Alanine Aminotransfer (ALT/SGP 26 U/L (12-78); Albumin, Blood 3.6 g/dL (3.4-5.0); Albumin/Globulin Ratio 1.2 (0.8-1.8); Alk Phos 91 U/L (50-136); Anion Gap 2 mmol/L (6-16); Aspartate Aminotrans (AST/SGOT 17 U/L (12-37); Bilirubin, Total 0.8 mg/dL (0.1-1.0); Blood Urea Nitrogen 24 mg/dL (8-24); Bun/Creatinine Ratio 28.4 (12.0-20.0); CO2, Blood 28 mmol/L (21-32); Calcium, Blood 8.7 mg/dL (8.5-10.1); Chloride, Blood 109 mmol/L (98-108); Creatinine, Blood 0.84 mg/dL (0.40-1.00); Digoxin (Lanoxin) 1.12 ug/mL (0.80-2.00); Globulin, Blood 3.1 g/dL (2.2-4.0); Glomerular Filtration Rate 67 (60-); Glucose, Blood 107 mg/dL (70-99); Potassium, Blood 3.5 mmol/L (3.5-5.5); Sodium, Blood 139 mmol/L (136-145); Total Protein, Blood 6.7 g/dL (6.4-8.2)
== END | disposition home or self-care (01) ==
LOC: LAB SHORT 15:39
PROVIDERS: Nurse Practitioner Family
DX: I12.9 Hypertensive chronic kidney disease with stage 1 through stage 4 chronic kidney disease, or unspecified chronic kidney disease (principal); N18.31 Chronic kidney disease, stage 3a; D63.1 Anemia in chronic kidney disease; I48.0 Paroxysmal atrial fibrillation
CPT/HCPCS: 80053; 80162; 82728; 83540; 83550; 85025

== ENCOUNTER 2022-07-12 14:05 | Inpatient (IN) | payer MEDICARE, BC ==
[~2022-07-12] VITALS: Ht 167.6 cm; Wt 60.8 kg
[~2022-07-12 14:05] MED LIST changes: +ALCIS59.15 ML TOP; +ARTIFICIAL TEAR15 M6 BOTHEYES; +GABA100 PO; +NORVASC5 MG PO
[2022-07-12] MEDS ORDERED: PANTOPRAZOLE SO40 M2 PO (14:36)
[2022-07-12] MEDS ORDERED: FUROSEMIDE40 MG PO (14:37)
[2022-07-12] MEDS ORDERED: ALLOPURINOL100 M1 PO (14:37)
[2022-07-12] MEDS ORDERED: METOPROLOL SUCC25 MG PO (14:38)
[2022-07-12] MEDS ORDERED: ATORVASTATIN CA20 MG PO (14:38)
[2022-07-12] MEDS ORDERED: LIDOCAINE1 EACH TOP (14:39)
[2022-07-12] MEDS ORDERED: ESCI10 PO (14:41)
[2022-07-12 15:59] LABS: BASOPHILS PERCENT AUTO 0 % (0-2); EOSINOPHILS ABSOLUTE AUTO 0.14 K/mm3 (0.00-0.68); EOSINOPHILS PERCENT AUTO 2 % (0-6); Hematocrit 35.2 % (33.0-51.0); IMMATURE GRAN ABSOLUTE AUTO 0.02 K/mm3 (0.00-0.10); IMMATURE GRAN PERCENT AUTO 0 % (0-1); LYMPHOCYTES ABSOLUTE AUTO 1.21 K/mm3 (0.84-5.20); LYMPHOCYTES PERCENT AUTO 20 % (21-46); MONOCYTES ABSOLUTE AUTO 0.58 K/mm3 (0.16-1.47); MONOCYTES PERCENT AUTO 10 % (4-13); Mean Corpuscular HGB 27.5 pg (26.0-34.0); Mean Corpuscular HGB Conc 31.3 g/dL (31.5-36.5); Mean Corpuscular Volume 88 fL (80-100); Mean Platelet Volume 10.3 fL (9.1-12.4); NEUTROPHILS ABSOLUTE AUTO 4.08 K/mm3 (1.96-9.15); NEUTROPHILS PERCENT AUTO 68 % (41-73); Platelet Count 184 K/mm3 (150-400); RDW Coefficient Variation 15.3 % (11.7-14.2); RDW Standard Deviation 50.4 fL (35.1-46.3); White Blood Cell Count 6.03 K/mm3 (4.00-11.30)
[2022-07-12 16:20] LABS: Magnesium, Blood 2.3 mg/dL (1.6-2.4)
[2022-07-12 16:34] LABS: Alanine Aminotransfer (ALT/SGP 38 U/L (12-78); Albumin, Blood 3.3 g/dL (3.4-5.0); Alk Phos 114 U/L (50-136); Anion Gap 3 mmol/L (6-16); Aspartate Aminotrans (AST/SGOT 28 U/L (12-37); Bilirubin, Total 0.8 mg/dL (0.1-1.0); Blood Urea Nitrogen 23 mg/dL (8-24); Bun/Creatinine Ratio 26.6 (12.0-20.0); CO2, Blood 25 mmol/L (21-32); Chloride, Blood 111 mmol/L (98-108); Creatinine, Blood 0.87 mg/dL (0.40-1.00); Digoxin (Lanoxin) 0.07 ug/mL (0.80-2.00); Globulin, Blood 3.2 g/dL (2.2-4.0); Glomerular Filtration Rate 64 (60-); Glucose, Blood 112 mg/dL (70-99); Potassium, Blood 3.7 mmol/L (3.5-5.5); Sodium, Blood 139 mmol/L (136-145); Total Protein, Blood 6.5 g/dL (6.4-8.2)
[2022-07-12 20:41] VITALS: BP 152/92
[2022-07-13] VITALS (17 sets, daily range): BP systolic 131–194; BP diastolic 62–97
--- NOTE | 2022-07-13 05:49 | NUR ---
SHIFT SUMMARY ASSUMED CARE OF PT AT 2030. PT IS A/OX4 BUT FORGETFUL. FOR EXAMPLE, PT ASKED SEVERAL TIMES IF SHE WAS GETTING SURGERY IN AM. LUNG SOUNDS CLEAR. HR RANGED FROM 48 TO 70S. PT HAD RUN OF SYMTOMATIC VTACH. PT BP ELEVATED, HOSPITALIST NOTIFIED AND MEDICATED PER EMAR. PT WAS VERY RESTLESS THIS NOC. PT WENT ON 3 WALKS AROUND THE UNIT AND WENT TO THE BATHROOM ALMOST EVERY HOUR, WITH LITTLE URINE OUTPUT. PT HAD ZIO PATCH ON AT START OF SHIFT BUT IT FELL OFF WHILE GOING TO THE BATHROOM; CHARGE NURSE CALLED [employer] WHO SAID TO SEND PATCH IN HOME PACKAGEING FOR ANALYSIS. PT NPO SINCE MIDNIGHT.
[2022-07-13 05:57] LABS: BASOPHILS ABSOLUTE AUTO 0.01 K/mm3 (0.00-0.23); BASOPHILS PERCENT AUTO 0 % (0-2); EOSINOPHILS ABSOLUTE AUTO 0.15 K/mm3 (0.00-0.68); EOSINOPHILS PERCENT AUTO 2 % (0-6); Hematocrit 36.2 % (33.0-51.0); Hemoglobin 11.6 g/dL (11.5-16.0); IMMATURE GRAN ABSOLUTE AUTO 0.03 K/mm3 (0.00-0.10); IMMATURE GRAN PERCENT AUTO 1 % (0-1); LYMPHOCYTES PERCENT AUTO 17 % (21-46); MONOCYTES ABSOLUTE AUTO 0.56 K/mm3 (0.16-1.47); MONOCYTES PERCENT AUTO 9 % (4-13); Mean Corpuscular HGB 28.2 pg (26.0-34.0); Mean Corpuscular Volume 88 fL (80-100); NEUTROPHILS ABSOLUTE AUTO 4.75 K/mm3 (1.96-9.15); NEUTROPHILS PERCENT AUTO 72 % (41-73); Platelet Count 182 K/mm3 (150-400); RDW Coefficient Variation 15.5 % (11.7-14.2); RDW Standard Deviation 49.5 fL (35.1-46.3); Red Blood Cell Count 4.11 M/mm3 (3.80-5.20)
[2022-07-13 06:08] LABS: International Normalized Ratio 1.15
[2022-07-13 06:18] LABS: Bun/Creatinine Ratio 28.8 (12.0-20.0); Calcium, Blood 8.5 mg/dL (8.5-10.1); Creatinine, Blood 0.94 mg/dL (0.40-1.00); Potassium, Blood 4.2 mmol/L (3.5-5.5)
--- NOTE | 2022-07-13 19:16 | NUR ---
END SHIFT NOTE. PACEMAKER WAS PLACED THIS AFTERNOON. PT ARRIVED BACK TO THE UNIT WITH PRESSURE DRESSING TO SITE. SITE HAS STARTED TO REBLEED X2 SINCE ARRIVING BACK TO UNIT. MANUAL PRESSURE HAS BEEN HELD FOR APPROX 2 HOURS. DRESSING/ ICE PACK AND SAND BAG CURRENTLY IN PLACE. PT HAS BEEN GIVEN EDUCATION ON LAYING IN BED AND NOT MOVING ARM. DAUGHTER WAS PHONED TO UPDATE THIS EVENING. PT IS ABLE TO MAKE NEEDS KNOWN, CALL LIGHT IS WITHIN REACH.
--- NOTE | 2022-07-13 23:45 | NUR ---
Patient continues to bleed via pacer site. Joseph dressings applied, tegaderm, pressure bandage and weight applied. Resident contacted regarding patient restlessness and constant moving not allowing clotting to occur. Orders given with moderate effect. Tylenol administered per emar d/t patient pain regarding pressure on site.
[2022-07-14] VITALS (14 sets, daily range): BP systolic 93–167; BP diastolic 42–85
--- NOTE | 2022-07-14 02:27 | NUR ---
EVENT NOTE THIS CHARGE NURSE WAS REQUESTED TO ROOM FOR ADDITIONAL BLEEDING FROM PACER SITE. PT STATES "I WOKE UP BECAUSE IT FELT WET UNDER MY LEFT ARM". FRESH BLOOD OBSERVED ON LINENS UNDER LEFT ARM. PRESSURE DRESSING INTACT WITH VISIBLE OOZING UNDER THE LATERAL BORDER. CALLED DR. DUKES TO REQUEST DIRECTION AT THIS TIME DUE TO CONTINUED DIFFICULTY CONTROLLING THE BLEEDING. RECEIVED ORDER TO INFILTRATE LIDOCAINE WITH EPI TO ATTEMPT TO CONSTRICT THE SMALL AREA THAT IS MEDIAL AND SUPERIOR ON THE INCISION SITE. OOZING REDUCED SO MANUAL PRESSURE HELD FOR APPROX 10 MINS. NEW STERI STRIPS PLACED AND THEN KIELY DRESSING PLACED OVER DIME SIZED SCANT OOZING AREA. TEGADERM PLACED AND ICE PACK REAPPLIED. WILL CONTINUE TO MONITOR CLOSELY. DR. DUKES NOTIFIED AND PLAN IS TO RETURN TO TUMBLER OPERATOR IF NECESSARY THIS AM TO CAUTERIZE IF BLEEDING IS NOT CONTROLLED. PRIMARY RN EFRAIN HERNANDEZ.
--- NOTE | 2022-07-14 05:24 | NUR ---
Assumed care of patient at 1900, A/Ox4. C/o L chest wall pain managed with ice and PRN. Some short term memory deficit noted with patient asking same question in short time span. Afib on tele w/PVC, paced. Denies CP/pressure. SBP elevated into 160-170's, PRN given that brought it down to SBP 110-120. 1+ pitting edema to BLE. Patient has urinary frequency with small amounts at a time, yellow in color. Purewick applied to facilitate nonmovement in regards to the pacer site bleeding. See previous RN's notes regarding bleeding. Bleeding has slowed after injections and more ice applied. Will report to dayshift RN.
[2022-07-14 09:09] LABS: Hematocrit 36.2 % (33.0-51.0); Hemoglobin 11.5 g/dL (11.5-16.0)
--- NOTE | 2022-07-14 18:19 | NUR ---
END OF SHIFT NOTE. PT WENT BACK TO THE RIGHT OF WAY WORKER THIS MORNING TO HAVE BLEED FIXED. PT HAS NOT REBLED SINCE THE PROCEDURE. PT HAS BEEN DROWSY THROUGHOUT THE DAY BUT REPORTS SHE HAS NOT SLEPT IN THE LAST 2 NIGHTS. LASIX WAS GIVEN AT NOON WITH MODERATE OUTPUT. AWARE AND REORDERED ANOTHER DOSE THIS EVENING. SOME COMPLAINTS OF DISCOMFORT TO BACK AND PACER SITE. TREATED PER MAY. WALESKA WAS HERE TO VISIT FOR MUCH OF THE DAY. UPDATED ON POSSIBLE DISCHARGE TOMORROW. FOLLOW UP APPT MADE FOR PACER CHECK. 07/21/2022 1330. PT IS ABLE TO MAKE NEEDS KNOWN, CALL LIGHT IS WITHIN REACH. BED ALARM IS ACTIVE DUE TO POOR SHORT TERM MEMORY.
--- NOTE | 2022-07-14 23:37 | NUR ---
PT TX'D FROM PCU 14 TO PCU 09 BECAUSE SHE WAS TRYING TO GET OUT OF BED ALMOST EVERY THIRTY MIINUTES. SHE DOES NOT USE HER CALL LIGHT APPROPRIATELY. PT SETTLED IN PCU 09, FALL PREVENTIONS PUT IN PLACE :THREE SIDE RAILS, BED ALARM, BED IN LOW, DOOR OPEN, AND CLOSE TO THE NURSES STATION.
[2022-07-15 03:09] VITALS: BP 157/62
[2022-07-15 04:25] LABS: Bun/Creatinine Ratio 23.8 (12.0-20.0); Calcium, Blood 8.7 mg/dL (8.5-10.1); Creatinine, Blood 1.05 mg/dL (0.40-1.00); Potassium, Blood 3.4 mmol/L (3.5-5.5)
--- NOTE | 2022-07-15 05:01 | NUR ---
SHIFT SUMMARY PT IS A&OX4 BUT HAS BEEN INCREASINGLY FORGETFUL T/O THE NIGHT ABOUT CLIMBING OUT OF BED AND SHE PULLED HER IV. SHE HAS NEEDED CONSTANT REMINDERS ABOUT USING HER CALL LIGHT AND REMINDERS THAT SHE IS SET UP TO A PURWICK FOR HER FREQUENT NEED TO VOID. SHE ANSWERS QUESTIONS APPROPRIATELY AND IS REDIRECTABLE, JUST IMPULSIVE WHEN ALONE. SHE HAS BEEN MOVED TO [facility] FOR CLOSE MONITORING BY MORE STAFF. PT HAS HAD NO COMPLAINTS THIS SHIFT. SHE HAS BEEN ON ROOM AIR AND SPO2 >93%. HER BP HAS BEEN SLIGHTLY HYPERTENSIVE AND ON TELE PT IS RUNNING SR. NO ACUTE EVENTS THIS SHIFT. SEE NOTES FOR ANY UPDATES.
[2022-07-15 07:23] VITALS: BP 126/43
[2022-07-15] MEDS ORDERED: ROPI.25 PO (09:10)
--- NOTE | 2022-07-15 10:30 | NUR ---
CARE ASSUMPTION/DISCHARGE This RN assumed care at 0700. vital signs stable. patient is alert and oriented x4. perrla. patient is forgetful and needs reminders to use call light. bed alarm and chair alarm are on when patient is sitting in either chair or bed. Patient reports no pain. Patient reports no chest pain/pressure. patient reports no shortness of breath. Patient pacer site is clean dry and intact, the dressing is still in place. see shift assessment for further detials. This RN educated the patient and patient daughter about site care and activity restrictions and follow up appointment. paper work on pacer post op instructions given to patient and family. patient informed of follow ups for wound check and pacer check. patient and daughter verbalized understanding. Patient left with all belongings and in no distress.
== END 2022-07-15 10:28 | disposition home or self-care (01) | DRG 243 ==
LOC: ER 14:05 → PCU 14:06
PROVIDERS: Emergency Medicine; Internal Medicine Cardiovascular Disease; ADMIT Family Medicine
PROC: 0JH604Z Insertion of Pacemaker, Single Chamber into Chest Subcutaneous Tissue and Fascia, Open Approach (ICD-10-PCS; principal; 2022-07-13)
PROC: 02HL3JZ Insertion of Pacemaker Lead into Left Ventricle, Percutaneous Approach (ICD-10-PCS; 2022-07-13)
PROC: 0W380ZZ Control Bleeding in Chest Wall, Open Approach (ICD-10-PCS; 2022-07-14)
DX: R00.1 Bradycardia, unspecified (principal); I97.618 Postprocedural hemorrhage of a circulatory system organ or structure following other circulatory system procedure; I48.11 Longstanding persistent atrial fibrillation; I35.0 Nonrheumatic aortic (valve) stenosis; I27.20 Pulmonary hypertension, unspecified; Z66 Do not resuscitate; I34.0 Nonrheumatic mitral (valve) insufficiency; I07.1 Rheumatic tricuspid insufficiency; G25.81 Restless legs syndrome; F32.A Depression, unspecified; M10.9 Gout, unspecified; I25.10 Atherosclerotic heart disease of native coronary artery without angina pectoris; E78.5 Hyperlipidemia, unspecified; J44.9 Chronic obstructive pulmonary disease, unspecified; D50.9 Iron deficiency anemia, unspecified; R55 Syncope and collapse; E87.6 Hypokalemia; I11.0 Hypertensive heart disease with heart failure; I50.9 Heart failure, unspecified; D63.8 Anemia in other chronic diseases classified elsewhere; M19.90 Unspecified osteoarthritis, unspecified site; K21.9 Gastro-esophageal reflux disease without esophagitis; Z96.642 Presence of left artificial hip joint; Z96.653 Presence of artificial knee joint, bilateral; Z88.1 Allergy status to other antibiotic agents; Z88.2 Allergy status to sulfonamides; Z79.899 Other long term (current) drug therapy; Z95.5 Presence of coronary angioplasty implant and graft; Z79.891 Long term (current) use of opiate analgesic; Z79.52 Long term (current) use of systemic steroids; Z90.710 Acquired absence of both cervix and uterus; Z98.62 Peripheral vascular angioplasty status; Z79.02 Long term (current) use of antithrombotics/antiplatelets; Z95.818 Presence of other cardiac implants and grafts; Y83.8 Other surgical procedures as the cause of abnormal reaction of the patient, or of later complication, without mention of misadventure at the time of the procedure
CPT/HCPCS: 33207; 36415; 71045; 80048; 80053; 80162; 83735; 84443; 84484; 85014; 85018; 85025; 85610; 93005; 93010; 94760; 96374; 99152; 99153; 99285-25; A9270; C1786; C1894; C1898; G0378; J0360; J0690; J1644; J1940; J2250; J3010; J3370; J7030; J7040; Q9967

== ENCOUNTER → 2023-02-21 | Outpatient (CLI) | payer MEDICARE, BC ==
[~2023-02-21] MED LIST changes: +ALLOPURINOL100 M1 PO; +ATORVASTATIN CA20 MG PO; +DOXYLAMINE-PYR1 EAC1; +ESCI10 PO; +FUROSEMIDE40 MG PO; +LIDOCAINE1 EACH TOP; +METOPROLOL SUCC25 MG PO; +PANTOPRAZOLE SO40 M2 PO; +ROPI.25 PO; +SODIUM CHLORIDE 0.9%; +TRAM50 PO
== END ==
LOC: LAB SHORT 11:41 → PLD 11:41 → LAB 11:41
DX: D48.5 Neoplasm of uncertain behavior of skin (principal)
CPT/HCPCS: 88305

== ENCOUNTER 2023-05-02 09:28 | Emergency (ER) | payer MEDICARE, BC ==
[~2023-05-02] VITALS: Ht 167.6 cm; Wt 68.0 kg
[2023-05-02 09:37] VITALS: BP 144/63
[2023-05-02 10:17] LABS: BASOPHILS ABSOLUTE AUTO 0.01 K/mm3 (0.00-0.23); BASOPHILS PERCENT AUTO 0 % (0-2); EOSINOPHILS ABSOLUTE AUTO 0.25 K/mm3 (0.00-0.68); EOSINOPHILS PERCENT AUTO 4 % (0-6); Hematocrit 32.4 % (33.0-51.0); Hemoglobin 10.4 g/dL (11.5-16.0); IMMATURE GRAN ABSOLUTE AUTO 0.02 K/mm3 (0.00-0.10); IMMATURE GRAN PERCENT AUTO 0 % (0-1); LYMPHOCYTES ABSOLUTE AUTO 0.96 K/mm3 (0.84-5.20); LYMPHOCYTES PERCENT AUTO 15 % (21-46); MONOCYTES ABSOLUTE AUTO 0.74 K/mm3 (0.16-1.47); MONOCYTES PERCENT AUTO 11 % (4-13); Mean Corpuscular HGB 30.4 pg (26.0-34.0); Mean Corpuscular HGB Conc 32.1 g/dL (31.5-36.5); Mean Corpuscular Volume 95 fL (80-100); Mean Platelet Volume 9.2 fL (9.1-12.4); NEUTROPHILS ABSOLUTE AUTO 4.56 K/mm3 (1.96-9.15); NEUTROPHILS PERCENT AUTO 70 % (41-73); Platelet Count 189 K/mm3 (150-400); RDW Coefficient Variation 14.6 % (11.7-14.2); RDW Standard Deviation 50.5 fL (35.1-46.3); Red Blood Cell Count 3.42 M/mm3 (3.80-5.20); White Blood Cell Count 6.54 K/mm3 (4.00-11.30)
[2023-05-02 10:26] LABS: Influenza A, PCR NEGATIVE (NEGATIVE); Influenza B, PCR NEGATIVE (NEGATIVE); Resp Syncytial Virus, PCR NEGATIVE (NEGATIVE); SARS-Cov-2 (COVID-19) PCR, MMC NEGATIVE (NEGATIVE)
[2023-05-02 12:19] LABS: Albumin, Blood 3.6 g/dL (3.4-5.0); Albumin/Globulin Ratio 0.9 (0.8-1.8); Bilirubin, Total 1.1 mg/dL (0.1-1.0); Bun/Creatinine Ratio 21.2 (12.0-20.0); Creatinine, Blood 1.04 mg/dL (0.40-1.00); Potassium, Blood 4.5 mmol/L (3.5-5.5); Total Protein, Blood 7.6 g/dL (6.4-8.2)
[2023-05-02] MEDS ORDERED: Albuterol 2.5 MG/3 ML VIAL INH SCH (12:45)
[2023-05-02] MEDS ORDERED: Azithromycin 250 MG Tab PO ONE (12:45)
[2023-05-02] MEDS ORDERED: PredniSONE 20 MG Tab PO ONE (12:45)
[2023-05-02] MEDS ORDERED: Ipratropium/Albuterol SulF 2.5-0.5MG/3 ML Amp INH ONE (12:45)
[2023-05-02] MEDS ORDERED: AZIT250 PO (14:24)
[2023-05-02] MEDS ORDERED: IPRAT-ALBUT 0.5-3 ML INH (14:24)
[2023-05-02] MEDS ORDERED: PRED20 PO (14:24)
== END 2023-05-02 14:57 | disposition home or self-care (01) ==
LOC: ER 09:28
PROVIDERS: Student in an Organized Health Care Education/Training Program
DX: I11.0 Hypertensive heart disease with heart failure (principal); I50.30 Unspecified diastolic (congestive) heart failure; J44.1 Chronic obstructive pulmonary disease with (acute) exacerbation; I48.91 Unspecified atrial fibrillation; M19.90 Unspecified osteoarthritis, unspecified site; I25.10 Atherosclerotic heart disease of native coronary artery without angina pectoris; K21.9 Gastro-esophageal reflux disease without esophagitis; F32.A Depression, unspecified; Z11.52 Encounter for screening for COVID-19; Z88.2 Allergy status to sulfonamides; Z88.1 Allergy status to other antibiotic agents; Z88.0 Allergy status to penicillin; Z79.899 Other long term (current) drug therapy; Z79.02 Long term (current) use of antithrombotics/antiplatelets
CPT/HCPCS: 0241U; 71046; 80053; 83880; 85025; 93005; 93010; 94644; 94664; 99285-25; A9270; J7512

== ENCOUNTER 2023-08-14 17:41 | Emergency (ER) | payer MEDICARE, BC ==
[~2023-08-14] VITALS: Ht 167.6 cm; Wt 68.0 kg
[~2023-08-14 17:41] MED LIST changes: +ASPIRIN REGIMEN81 MG PO; +AZIT250 PO; +IPRAT-ALBUT 0.5-3 ML INH; +JARDIANCE10 MG PO; +PRED20 PO; +WIXELA 100-501 EAC1 INH
[2023-08-14 17:50] VITALS: BP 134/94
== END 2023-08-14 19:25 | disposition home or self-care (01) ==
LOC: ER 17:41
DX: M79.89 Other specified soft tissue disorders (principal); I11.0 Hypertensive heart disease with heart failure; I50.9 Heart failure, unspecified; J44.9 Chronic obstructive pulmonary disease, unspecified; I48.91 Unspecified atrial fibrillation; M19.90 Unspecified osteoarthritis, unspecified site; I25.10 Atherosclerotic heart disease of native coronary artery without angina pectoris; M10.9 Gout, unspecified; K21.9 Gastro-esophageal reflux disease without esophagitis; F32.A Depression, unspecified; Z88.0 Allergy status to penicillin; Z88.2 Allergy status to sulfonamides; Z88.1 Allergy status to other antibiotic agents; Z79.899 Other long term (current) drug therapy; Z79.84 Long term (current) use of oral hypoglycemic drugs; Z79.51 Long term (current) use of inhaled steroids; Z79.02 Long term (current) use of antithrombotics/antiplatelets
CPT/HCPCS: 93971; 99283-25

== ENCOUNTER 2023-09-14 13:26 | Inpatient (IN) | payer MEDICARE, BC ==
[~2023-09-14] VITALS: Ht 167.6 cm; Wt 73.9 kg
[2023-09-14 14:50] LABS: BASOPHILS ABSOLUTE AUTO 0.01 K/mm3 (0.00-0.23); BASOPHILS PERCENT AUTO 0 % (0-2); EOSINOPHILS ABSOLUTE AUTO 0.15 K/mm3 (0.00-0.68); EOSINOPHILS PERCENT AUTO 2 % (0-6); Hematocrit 30.7 % (33.0-51.0); Hemoglobin 9.5 g/dL (11.5-16.0); IMMATURE GRAN ABSOLUTE AUTO 0.02 K/mm3 (0.00-0.10); IMMATURE GRAN PERCENT AUTO 0 % (0-1); LYMPHOCYTES ABSOLUTE AUTO 0.78 K/mm3 (0.84-5.20); LYMPHOCYTES PERCENT AUTO 10 % (21-46); MONOCYTES ABSOLUTE AUTO 0.88 K/mm3 (0.16-1.47); MONOCYTES PERCENT AUTO 11 % (4-13); Mean Corpuscular HGB 28.4 pg (26.0-34.0); Mean Corpuscular HGB Conc 30.9 g/dL (31.5-36.5); Mean Corpuscular Volume 92 fL (80-100); Mean Platelet Volume 9.5 fL (9.1-12.4); NEUTROPHILS ABSOLUTE AUTO 6.04 K/mm3 (1.96-9.15); NEUTROPHILS PERCENT AUTO 77 % (41-73); Platelet Count 254 K/mm3 (150-400); RDW Coefficient Variation 14.4 % (11.7-14.2); RDW Standard Deviation 48.4 fL (35.1-46.3); Red Blood Cell Count 3.35 M/mm3 (3.80-5.20); White Blood Cell Count 7.88 K/mm3 (4.00-11.30)
[2023-09-14 14:51] LABS: Albumin, Blood 3.2 g/dL (3.4-5.0); Albumin/Globulin Ratio 0.9 (0.8-1.8); Bilirubin, Total 0.7 mg/dL (0.1-1.0); Bun/Creatinine Ratio 46.7 (12.0-20.0); Calcium, Blood 8.6 mg/dL (8.5-10.1); Creatinine, Blood 1.69 mg/dL (0.40-1.00); Globulin, Blood 3.7 g/dL (2.2-4.0); Magnesium, Blood 3.2 mg/dL (1.6-2.4); Potassium, Blood 4.9 mmol/L (3.5-5.5); Total Protein, Blood 6.9 g/dL (6.4-8.2)
[2023-09-14] MEDS ORDERED: NS 1,000 ML IV SCH (17:20)
[2023-09-14] MEDS ORDERED: Diphth,Pertuss(Acell),Tet Vac 0.5 ML VIAL IM ONE (17:30)
[2023-09-14 18:38] LABS: Influenza A, PCR NEGATIVE (NEGATIVE); Influenza B, PCR NEGATIVE (NEGATIVE); Resp Syncytial Virus, PCR NEGATIVE (NEGATIVE); SARS-Cov-2 (COVID-19) PCR, MMC NEGATIVE (NEGATIVE)
[2023-09-14 18:47] LABS: Source, Urine Clean Catch
[2023-09-14 19:22] LABS: Bilirubin, Urine Neg (Neg); Blood, Urine Neg (Neg); Color, Urine Yellow (P-Yellow); Glucose Qualitative, Urine Neg (Neg); Ketones, Urine Neg (Neg); Leukocyte Esterase, Urine Neg (Neg); Nitrite, Urine Neg (Neg); Protein, Urine Neg (Neg); Specific Gravity, Urine 1.015 (1.003-1.022); Urobilinogen, Urine NORM (Normal)
[2023-09-14 19:41] LABS: Appearance, Urine Hazy (Clear); Bacteria Mod /hpf; Mucus Light (0-Heavy); Red Blood Cells, Urine 0-2 /hpf (0-2); Squamous Epithelial Cells Few /hpf (Few); White Blood Cells, Urine 0-2 /hpf (0-5)
[2023-09-14] MEDS ORDERED: Ondansetron HCl 2 MG / ML 2ML Vial IV PRN (21:30)
[2023-09-14] MEDS ORDERED: Acetaminophen 325 MG TABLET PO PRN (21:30)
[2023-09-14] MEDS ORDERED: Albuterol 2.5 MG/3 ML VIAL INH PRN (21:35)
[2023-09-14] MEDS ORDERED: Mometasone/Formoterol MDI 100/5 mcg 13 GM INH SCH (21:40)
[2023-09-14 23:20] VITALS: BP 117/59
[2023-09-15 04:31] VITALS: BP 150/66
[2023-09-15] MEDS ORDERED: Pantoprazole Sodium 40 MG Tab PO SCH (06:00)
[2023-09-15 06:25] LABS: Hematocrit 29.3 % (33.0-51.0); Hemoglobin 9.2 g/dL (11.5-16.0); Mean Corpuscular HGB 28.6 pg (26.0-34.0); Mean Corpuscular HGB Conc 31.4 g/dL (31.5-36.5); Mean Corpuscular Volume 91 fL (80-100); Mean Platelet Volume 8.9 fL (9.1-12.4); Platelet Count 231 K/mm3 (150-400); RDW Coefficient Variation 14.4 % (11.7-14.2); Red Blood Cell Count 3.22 M/mm3 (3.80-5.20); White Blood Cell Count 6.89 K/mm3 (4.00-11.30)
[2023-09-15 06:52] LABS: Bun/Creatinine Ratio 48.7 (12.0-20.0); Calcium, Blood 8.4 mg/dL (8.5-10.1); Creatinine, Blood 1.5 mg/dL (0.40-1.00); Potassium, Blood 4.6 mmol/L (3.5-5.5)
--- NOTE | 2023-09-15 07:31 | NUR ---
SHIFT SUMMARY, REDRESSED BLE AFTER TAKING PHOTOS. GIVEN TYLENOL FOR PAIN. IMPULSIVE, SETTING OFF BED ALARMS. UP TO BR USING FWW AND 1 ASSIST
[2023-09-15 07:33] VITALS: BP 112/62
[2023-09-15] MEDS ORDERED: Furosemide 10 MG/ML 4ML Vial IV SCH (09:00)
[2023-09-15] MEDS ORDERED: Metoprolol Succinate 50 MG TABCR PO SCH (09:00)
[2023-09-15] MEDS ORDERED: Aspirin 81 MG Chew PO SCH (09:00)
[2023-09-15] MEDS ORDERED: Clopidogrel Bisulfate 75 MG Tab PO SCH (09:00)
[2023-09-15] MEDS ORDERED: Heparin Sodium,Porcine 5,000 UNIT/0.5 ML SDV SC SCH (09:00)
[2023-09-15] MEDS ORDERED: Empagliflozin 10 MG TAB PO SCH (09:00)
[2023-09-15] MEDS ORDERED: CLOT10 PO (11:21)
[2023-09-15] MEDS ORDERED: MAG-OXIDE MAGN200 MG PO (11:21)
[2023-09-15] MEDS ORDERED: rOPINIRole HCl 0.25 MG Tab PO PRN (12:20)
[2023-09-15] MEDS ORDERED: OxyCODONE HCL 5 MG TAB PO PRN (12:20)
[2023-09-15] MEDS ORDERED: Tiotropium Bromide 2.5 MCG/ACT MIST INHAL (10 ACT/4 GM) INH SCH (14:00)
[2023-09-15] MEDS ORDERED: Furosemide 40 MG Tab PO SCH (14:00)
[2023-09-15 15:25] VITALS: BP 117/52
--- NOTE | 2023-09-15 18:37 | NUR ---
PT QUITE PLEASANT TODAY. ALERT TO SELF AND FAMILY, SOME GENERAL ITEMS, BUT NOT DETAILS. LEGS WRAPPED BY IRVING MARCH, WOUND CARE CONSULTED, THEY OUT FOR WEEKEND. WILL BE ABLE TO OBTAIN MATERIALS SUNDAY. PT AMBULATING FWW WITH 1 MIN ASST TO BATHROOM. NO OTHER NEW CONCERNS NOTED. BED IN LOW POSITION, CALL LITE IN REACH, BED ALARM ON FOR SAFETY
[2023-09-15 19:38] VITALS: BP 134/59
[2023-09-15] MEDS ORDERED: Clotrimazole 10 MG Troche MT SCH (21:00)
[2023-09-16 02:50] VITALS: BP 136/62
--- NOTE | 2023-09-16 04:44 | NUR ---
SHIFT SUMMARY PATIENT WAS AWAKE, CONFUSED AND SETTING OFF BED ALARMS FREQUENTLY.UP WITH ASSIT USING FWW. PURE WICK PLACED AND WORKING WELL FOR HER WITH REMINDERS THAT SHE DOES NOT HAVE TO GET UP SO OFTEN. GIVEN PRN TYLENOL FOR PAIN. 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
[2023-09-16 07:13] VITALS: BP 152/66
[2023-09-16 08:50] LABS: Hematocrit 31.3 % (33.0-51.0); Hemoglobin 9.9 g/dL (11.5-16.0); Mean Corpuscular HGB 28.4 pg (26.0-34.0); Mean Corpuscular HGB Conc 31.6 g/dL (31.5-36.5); Mean Corpuscular Volume 90 fL (80-100); Platelet Count 263 K/mm3 (150-400); RDW Coefficient Variation 14.4 % (11.7-14.2); Red Blood Cell Count 3.48 M/mm3 (3.80-5.20); White Blood Cell Count 9.06 K/mm3 (4.00-11.30)
[2023-09-16] MEDS ORDERED: Citalopram Hydrobromide 10 MG TAB PO SCH (09:00)
[2023-09-16] MEDS ORDERED: Atorvastatin 40 MG Tab PO SCH (09:00)
[2023-09-16 09:07] LABS: Albumin, Blood 3.4 g/dL (3.4-5.0); Anion Gap 11 mmol/L (3-11); Blood Urea Nitrogen 60 mg/dL (8-24); CO2, Blood 26 mmol/L (21-32); Calcium, Blood 9.2 mg/dL (8.5-10.1); Chloride, Blood 105 mmol/L (98-108); Creatinine, Blood 1.09 mg/dL (0.40-1.00); Glomerular Filtration Rate 49 (60-); Glucose, Blood 144 mg/dL (70-99); Magnesium, Blood 2.7 mg/dL (1.6-2.4); Phosphorus, Blood 2.9 mg/dL (2.5-4.9); Potassium, Blood 5.1 mmol/L (3.5-5.5); Sodium, Blood 137 mmol/L (136-145)
[2023-09-16] MEDS ORDERED: Elastic Bandage/Support 1 EA MISC TOP ONE (10:25)
--- NOTE | 2023-09-16 11:32 | NUR ---
PLACED UNNA BOOTS BILAT.. COVERED WITH GELACIO WRAP PER INST.
--- NOTE | 2023-09-16 11:59 | NUR ---
PT WAS ABLE TO SWALLOW FEW SIPS H2O.
[2023-09-16 15:39] VITALS: BP 150/60
--- NOTE | 2023-09-16 17:41 | NUR ---
PT PLEASANT TODAY. DAUGHTER IN TO VISIT. PT UPDATED POLST WITH DR STARK. COPY IN FILE, DAUGHTER TOOK TO HOME. PT UP AMBULATING FWW SBA TO BATHROOM. PLACED UNNA BOOTS THIS AM. PT VERNON WELL. NO NEW CONCERNS NOTED. BED IN LOW POSITION, CALL LITE IN REACH, PT UP IN CHAIR MUCH OF DAY. CHAIR AND BED ALARM ON FOR SAFETY
[2023-09-16 19:40] VITALS: BP 217/204
[2023-09-16 19:41] VITALS: BP 143/77
[2023-09-16] MEDS ORDERED: Miconazole Nitrate 2% 85 GM PWD TOP SCH (22:30)
[2023-09-16] MEDS ORDERED: Melatonin 5 MG Tablet PO PRN (23:20)
[2023-09-17] MEDS ORDERED: LORazepam 0.5 MG Tab PO ONE (02:05)
[2023-09-17 02:49] VITALS: BP 175/48
--- NOTE | 2023-09-17 06:41 | NUR ---
SHIFT SUMMARY PT IS A&OX2. AWAKE ALL NIGHT, UP AND DOWN FROM BED TO RECLINER, BACK TO BED. VERY IMPULSIVE AND BECOMING IRRITATED. VSS ON RA. PAIN IN BLE. YEAST RASH UNDER LEFT BREAST NOTED, DESENEX POWDER ORDERED AND APPLIED. X1 ASSIST WITH FWW TO BR. VOIDING LARGE AMOUNTS OF CLEAR, LIGHT YELLOW URINE. NO BM THIS SHIFT. PULL UP IN PLACE FOR INCONTINENCE. BLE WITH UNNABOOTS IN PLACE. BED IN LOWEST POSITION, CALL LIGHT WITHIN REACH. BED/CHAIR ALARM SET FOR PT'S SAFETY. PT DOES NOT USE CALL LIGHT APPROPRIATELY. CONTACT PRECAUTIONS MAINTAINED FOR MRSA IN HER LEG WOUNDS.
[2023-09-17 07:21] VITALS: BP 162/69
[2023-09-17 08:10] LABS: Albumin, Blood 3.3 g/dL (3.4-5.0); Anion Gap 10 mmol/L (3-11); Blood Urea Nitrogen 42 mg/dL (8-24); Bun/Creatinine Ratio 41.6 (12.0-20.0); CO2, Blood 28 mmol/L (21-32); Calcium, Blood 9.2 mg/dL (8.5-10.1); Chloride, Blood 102 mmol/L (98-108); Creatinine, Blood 1.01 mg/dL (0.40-1.00); Glomerular Filtration Rate 53 (60-); Glucose, Blood 115 mg/dL (70-99); Phosphorus, Blood 2.7 mg/dL (2.5-4.9); Potassium, Blood 4.1 mmol/L (3.5-5.5); Sodium, Blood 136 mmol/L (136-145)
[2023-09-17] MEDS ORDERED: ACET325 PO (12:46)
[2023-09-17] MEDS ORDERED: MICONAZOLE NITR85 GM TOP (12:47)
[2023-09-17] MEDS ORDERED: TIOT18 INH (12:48)
== END 2023-09-17 13:32 | disposition home health service (06) | DRG 682 ==
LOC: ER 13:26 → MEDS 13:27
PROVIDERS: Internal Medicine; Nurse Practitioner Acute Care; Physician Assistant; Student in an Organized Health Care Education/Training Program; ADMIT Internal Medicine
DX: N17.9 Acute kidney failure, unspecified (principal); G92.8 Other toxic encephalopathy; I48.20 Chronic atrial fibrillation, unspecified; I50.32 Chronic diastolic (congestive) heart failure; J44.9 Chronic obstructive pulmonary disease, unspecified; M19.90 Unspecified osteoarthritis, unspecified site; Z66 Do not resuscitate; I11.0 Hypertensive heart disease with heart failure; M10.9 Gout, unspecified; I50.810 Right heart failure, unspecified; I27.20 Pulmonary hypertension, unspecified; S00.31XA Abrasion of nose, initial encounter; W18.30XA Fall on same level, unspecified, initial encounter; I25.10 Atherosclerotic heart disease of native coronary artery without angina pectoris; K21.9 Gastro-esophageal reflux disease without esophagitis; F32.A Depression, unspecified; Z96.653 Presence of artificial knee joint, bilateral; Z90.710 Acquired absence of both cervix and uterus; Z96.642 Presence of left artificial hip joint; Z98.890 Other specified postprocedural states; Z95.5 Presence of coronary angioplasty implant and graft; Z88.0 Allergy status to penicillin; Z88.2 Allergy status to sulfonamides; Z88.8 Allergy status to other drugs, medicaments and biological substances; Z95.0 Presence of cardiac pacemaker; Z79.82 Long term (current) use of aspirin; Z79.02 Long term (current) use of antithrombotics/antiplatelets; Z79.899 Other long term (current) drug therapy; Z79.891 Long term (current) use of opiate analgesic
CPT/HCPCS: 0241U; 36415; 70450; 71046; 72125; 80048; 80053; 80069; 81001; 82550; 83735; 83880; 84145; 85025; 85027; 87086; 90471; 90715; 93005; 93010; 94640; 94664; 94760; 94762; 96360; 96361; 96372; 97162; 97530; 99285-25; A9270; G0378; J1644; J7030

== ENCOUNTER → 2023-09-24 | Outpatient (CLI) | payer MEDICARE, BC ==
[~2023-09-24] MED LIST changes: +ACET325 PO; +CLOT10 PO; +MAG-OXIDE MAGN200 MG PO; +MICONAZOLE NITR85 GM TOP; +TIOT18 INH
== END ==
LOC: LAB 16:39 → LAB SHORT 16:39
DX: R30.0 Dysuria (principal)
CPT/HCPCS: 87086